=== PATIENT | female | born 1955 | race Caucasian/White ===

== ENCOUNTER 2022-07-28 17:19 | Inpatient (IN) | payer MEDICARE, OTHER ==
[~2022-07-28] VITALS: Ht 167.6 cm; Wt 55.0 kg
[2022-07-28 17:10] VITALS: BP 140/81
[2022-07-28] MEDS ORDERED: ALORA1 EA11 TOP (17:26)
[2022-07-28] MEDS ORDERED: TRAZ50 PO (17:27)
[2022-07-28] MEDS ORDERED: Diazepam10 MG PO (17:32)
[2022-07-28 19:33] VITALS: BP 141/79
--- NOTE | 2022-07-28 19:54 | NUR ---
SHIFT SUMMARY PT A&OX4, VSS/2L/BIOX SATS WNL, NPO/NGT LIS, CONSULT CALLED TO DR CASTELLANOS, VOIDING/BSC, SBA, PAIN TREATED PER EMAR. REPORT TO JUAN CARLOS VANN.
[2022-07-29 05:47] LABS: BASOPHILS ABSOLUTE AUTO 0.04 K/mm3 (0.00-0.23); BASOPHILS PERCENT AUTO 1 % (0-2); EOSINOPHILS ABSOLUTE AUTO 0.05 K/mm3 (0.00-0.68); EOSINOPHILS PERCENT AUTO 1 % (0-6); Hematocrit 31.6 % (33.0-51.0); Hemoglobin 10.5 g/dL (11.5-16.0); IMMATURE GRAN ABSOLUTE AUTO 0.01 K/mm3 (0.00-0.10); IMMATURE GRAN PERCENT AUTO 0 % (0-1); LYMPHOCYTES PERCENT AUTO 17 % (21-46); MONOCYTES ABSOLUTE AUTO 0.28 K/mm3 (0.16-1.47); MONOCYTES PERCENT AUTO 8 % (4-13); Mean Corpuscular HGB 33.1 pg (26.0-34.0); Mean Corpuscular HGB Conc 33.2 g/dL (31.5-36.5); Mean Corpuscular Volume 100 fL (80-100); Mean Platelet Volume 10.3 fL (9.1-12.4); NEUTROPHILS ABSOLUTE AUTO 2.57 K/mm3 (1.96-9.15); NEUTROPHILS PERCENT AUTO 72 % (41-73); Platelet Count 209 K/mm3 (150-400); RDW Coefficient Variation 13.8 % (11.7-14.2); RDW Standard Deviation 50.1 fL (35.1-46.3); Red Blood Cell Count 3.17 M/mm3 (3.80-5.20); White Blood Cell Count 3.55 K/mm3 (4.00-11.30)
[2022-07-29 05:58] LABS: Bun/Creatinine Ratio 24.5 (12.0-20.0); Calcium, Blood 8.1 mg/dL (8.5-10.1); Creatinine, Blood 0.53 mg/dL (0.40-1.00); Potassium, Blood 3.5 mmol/L (3.5-5.5)
--- NOTE | 2022-07-29 06:11 | NUR ---
PATIENT IS ALERT AND ORIENTED X4, COOPERATIVE WITH CARE, STAND BY ASSIST TO HELP MANAGE LINES. PIV INFUSING. PATIENT SLEPT FOR SOME OF THE NIGHT, AND IS NPO WITH NG TUBE TO INT SUCTION WITH 240 GREEN OUTPUT. PAIN TREATED PER MAR. NO OTHER ISSUES TO REPORT.
[2022-07-29 06:27] VITALS: BP 133/77
[2022-07-29 07:41] VITALS: BP 141/86
[2022-07-29 16:20] VITALS: BP 148/75
--- NOTE | 2022-07-29 17:06 | NUR ---
PT REPORTS SOME CRAMPING ABD PAIN WHICH IS WELL CONTROLLED WITH FENTANYL. NG TO LIS WITH DK BROWN OUTPUT. MEDICATED X1 FOR NAUSEA WITH GOOD RELIEF. PT REPORTS ABD FEELS SOFTER AND LESS BLOATED THAN IT DID YESTERDAY. 1 SMALL LIQUID BROWN BM. PT AWARE OF PLAN FOR SBFT IN MORNING
--- NOTE | 2022-07-29 18:45 | NUR ---
1758 IV FENTANYL GIVEN AND PATIENTS IV LEAKING. WILL RESTART IV
[2022-07-29 19:07] VITALS: BP 138/82
[2022-07-30 03:08] VITALS: BP 140/78
[2022-07-30 04:51] LABS: BASOPHILS ABSOLUTE AUTO 0.04 K/mm3 (0.00-0.23); BASOPHILS PERCENT AUTO 1 % (0-2); EOSINOPHILS ABSOLUTE AUTO 0.14 K/mm3 (0.00-0.68); EOSINOPHILS PERCENT AUTO 3 % (0-6); Hematocrit 30.1 % (33.0-51.0); Hemoglobin 10.1 g/dL (11.5-16.0); IMMATURE GRAN ABSOLUTE AUTO 0.02 K/mm3 (0.00-0.10); IMMATURE GRAN PERCENT AUTO 0 % (0-1); LYMPHOCYTES ABSOLUTE AUTO 0.62 K/mm3 (0.84-5.20); LYMPHOCYTES PERCENT AUTO 12 % (21-46); MONOCYTES ABSOLUTE AUTO 0.36 K/mm3 (0.16-1.47); MONOCYTES PERCENT AUTO 7 % (4-13); Mean Corpuscular HGB 33.3 pg (26.0-34.0); Mean Corpuscular HGB Conc 33.6 g/dL (31.5-36.5); Mean Corpuscular Volume 99 fL (80-100); Mean Platelet Volume 10.4 fL (9.1-12.4); NEUTROPHILS ABSOLUTE AUTO 3.86 K/mm3 (1.96-9.15); NEUTROPHILS PERCENT AUTO 77 % (41-73); Platelet Count 221 K/mm3 (150-400); RDW Coefficient Variation 13.2 % (11.7-14.2); RDW Standard Deviation 48.5 fL (35.1-46.3); Red Blood Cell Count 3.03 M/mm3 (3.80-5.20); White Blood Cell Count 5.04 K/mm3 (4.00-11.30)
[2022-07-30 05:04] LABS: Albumin, Blood 2.7 g/dL (3.4-5.0); Anion Gap 6 mmol/L (6-16); Blood Urea Nitrogen 19 mg/dL (8-24); Bun/Creatinine Ratio 32.9 (12.0-20.0); CO2, Blood 28 mmol/L (21-32); Calcium, Blood 7.9 mg/dL (8.5-10.1); Chloride, Blood 107 mmol/L (98-108); Creatinine, Blood 0.58 mg/dL (0.40-1.00); Glomerular Filtration Rate 99 (60-); Glucose, Blood 87 mg/dL (70-99); Phosphorus, Blood 1.5 mg/dL (2.5-4.9); Potassium, Blood 3.3 mmol/L (3.5-5.5); Sodium, Blood 141 mmol/L (136-145)
--- NOTE | 2022-07-30 05:43 | NUR ---
SHIFT SUMMARY PT A&Ox4, CALLS AND COMMUNCIATES NEEDS APPROPRIATELY. PT MODERATELY ANXIOUS THROUGHOUT NIGHT. VITAL SIGNS STABLE. PT REMAINED NPO WITH NG TUBE CONNECTED TO LOW INTERMITTENT SUCTION, 700mLs OF BROWN, LIQUID OUTPUT. PT WITH C/O MODERATE TO SEVERE ABDOMINAL PAIN AND ANXIETY THROUGHOUT NIGHT. PT EXPRESSED CONCERNS OF VALIUM WITHDRAWAL, PROVIDED EDUCATION. DISCUSSED WITH COMPUTER TECHNOLOGY INSTRUCTOR, PT FELT THAT SHE COULD NOT TOLERATE A 30 MINUTE BREAK FROM NG TUBE SUCTION IF SHE WERE TO TAKE THE ORDERED 2.5mg OF VALIUM. NO OTHER EVENTS, WILL REPORT TO ONCOMING RN.
[2022-07-30 07:53] VITALS: BP 125/80
[2022-07-30 12:54] LABS: Percent Saturation 5.8 % (15.0-50.0)
--- NOTE | 2022-07-30 13:48 | NUR ---
NG TUBE REMOVED AT THIS TIME. PT TOLERATED WELL. VERY EXCITED TO HAVE IT REMOVED, CONTINUES TO DENY NAUSEA
[2022-07-30 14:21] VITALS: BP 141/78
--- NOTE | 2022-07-30 16:06 | NUR ---
SHIFT SUMMARY SBO PT HAD SMALL BOWEL FOLLOW THROUGH TODAY, PT HAS NO FURTHER OBSTRUCTION PER IMAGING. MULTIPLE BOWEL MOVEMENTS TODAY. PT REMAINS IND IN ROOM. DENIES PAIN. PT FREQUENTLY REQUESTING ANXIETY MEDICATION, ADMINISTRATION PER EMAR. TOLERATING PO WELL, PLAN IS TO DISCHARGE TOMORROW.
[2022-07-30 19:27] VITALS: BP 148/85
[2022-07-31 02:39] VITALS: BP 132/71
--- NOTE | 2022-07-31 02:40 | NUR ---
SPO2 DROPPED TO 88 ON RA, PATIENT NOW ON 2L NC 02 SATS AT 93%. EDUCATED PATIENT ON USING IS, COUGH AND DEEP BREAHTE. EDUCATED PATIENT ON MEDICATIONS THAT CAUSE RESPIRATORY DEPRESSION. PATIENT APPEARS ANXIOUS AND STATES SHE CANNOT SLEEP AND IS WANTING A HIGHER DOSE OF TRAZADONE. REITIERATED THAT THE MEDICATIONS PATIENT TAKES HAVE A RISK OF RESPIRATORY DEPRESSION AND CAN CAUSE O2 NEED TO INCREASE. PATIENT SEEMS TO ACCEPT THIS EXPLAINATION AND STATES SHE UNDERSTANDS. CALL LIGHT IS IN REACH. CONT. PULSE IN PLACE.
--- NOTE | 2022-07-31 05:58 | NUR ---
SUMMARY NO ACUTE EVENTS THIS SHIFT, PATIENT HAD SMALL BOWEL FOLLOW THROUGH 07/30/22 WITH RESULTING RESOLUTION OF SBO. HAVING MULTIPLE BM T/O SHIFT. TOLERATING CL INTAKE. PATIENT HAS PLANS FOR DISCHARGE HOME WITH DAUGHTER. VITALS HAVE BEEN STABLE, PLACED ON 02 WHILE SLEEPING DUE TO SATS DROPPING TO 88-89. 2 LNC. RA WHILE AWAKE. PATIENT MEDICATED PER EMAR. PATIENT IS ABLE TO AMBULATE IN ROOM INDEP. IV SALINE LOCKED. WILL REPORT TO DAY RN AND CONT TO MONITOR.
[2022-07-31 07:02] VITALS: BP 139/84
[2022-07-31 07:07] LABS: BASOPHILS ABSOLUTE AUTO 0.03 K/mm3 (0.00-0.23); BASOPHILS PERCENT AUTO 1 % (0-2); EOSINOPHILS ABSOLUTE AUTO 0.16 K/mm3 (0.00-0.68); EOSINOPHILS PERCENT AUTO 3 % (0-6); Hematocrit 28.9 % (33.0-51.0); Hemoglobin 10.1 g/dL (11.5-16.0); IMMATURE GRAN ABSOLUTE AUTO 0.03 K/mm3 (0.00-0.10); IMMATURE GRAN PERCENT AUTO 1 % (0-1); LYMPHOCYTES ABSOLUTE AUTO 0.41 K/mm3 (0.84-5.20); LYMPHOCYTES PERCENT AUTO 7 % (21-46); MONOCYTES ABSOLUTE AUTO 0.25 K/mm3 (0.16-1.47); MONOCYTES PERCENT AUTO 4 % (4-13); Mean Corpuscular HGB 33.7 pg (26.0-34.0); Mean Corpuscular HGB Conc 34.9 g/dL (31.5-36.5); Mean Corpuscular Volume 96 fL (80-100); Mean Platelet Volume 9.8 fL (9.1-12.4); NEUTROPHILS ABSOLUTE AUTO 5.07 K/mm3 (1.96-9.15); NEUTROPHILS PERCENT AUTO 85 % (41-73); Platelet Count 216 K/mm3 (150-400); RDW Coefficient Variation 13.2 % (11.7-14.2); RDW Standard Deviation 46.8 fL (35.1-46.3); White Blood Cell Count 5.95 K/mm3 (4.00-11.30)
[2022-07-31 07:25] LABS: Albumin, Blood 2.7 g/dL (3.4-5.0); Anion Gap 7 mmol/L (6-16); Blood Urea Nitrogen 15 mg/dL (8-24); Bun/Creatinine Ratio 27.5 (12.0-20.0); CO2, Blood 27 mmol/L (21-32); Calcium, Blood 7.8 mg/dL (8.5-10.1); Chloride, Blood 108 mmol/L (98-108); Creatinine, Blood 0.55 mg/dL (0.40-1.00); Glomerular Filtration Rate 100 (60-); Glucose, Blood 131 mg/dL (70-99); Phosphorus, Blood 1.7 mg/dL (2.5-4.9); Potassium, Blood 2.8 mmol/L (3.5-5.5); Sodium, Blood 142 mmol/L (136-145)
--- NOTE | 2022-07-31 11:18 | NUR ---
1110 ORDERS RECEIVED FOR K PHOS INFUSION. DISCUSSED INFUSION WITH PATIENT WHO TELLS ME SHE DOES NOT WANT TO STAY HERE TO RECEIVE 5 HOUR INFUSION. PT TELLS ME SHE IS CALLING HER PCP. PHONE CALL PLACED AND DISCUSSED WITH DR RAVI
--- NOTE | 2022-07-31 11:30 | NUR ---
PT TELLS ME SHE SPOKE WITH HER PCP AND SHE IS NOW IN AGREEMENT WITH IV INFUSION. DR RAVI SPOKE WITH PATIENT AND ORDERS RECEIVED
[2022-07-31 13:55] VITALS: BP 132/78
[2022-07-31] MEDS ORDERED: DIAZ5 PO (15:23)
[2022-07-31] MEDS ORDERED: TRAZ50 (15:24)
[2022-07-31] MEDS ORDERED: TRAZ50 PO (15:25)
--- NOTE | 2022-07-31 18:13 | NUR ---
1804 DISCHARGED TO HOME WITH DAUGHTER. PT RACHELE FULL LIQUID DIET WITHOUT NAUSEA. VOIDING CLEAR YELLOW URINE, BROWN LIQUID BM. PT DENIES ABD PAIN, REPORTS SOME ABD "SORENESS". PT IN AGREEMETN WITH DISCHARGE PLAN. PRESCRIPTION GIVEN TO PATIENTS DAUGHTER
== END 2022-07-31 18:05 | disposition home or self-care (01) | DRG 389 ==
LOC: SURS 17:19
PROVIDERS: ADMIT Internal Medicine
DX: K56.609 Unspecified intestinal obstruction, unspecified as to partial versus complete obstruction (principal); E87.1 Hypo-osmolality and hyponatremia; J98.11 Atelectasis; G89.29 Other chronic pain; F51.04 Psychophysiologic insomnia; R06.81 Apnea, not elsewhere classified; R73.9 Hyperglycemia, unspecified; D70.9 Neutropenia, unspecified; E87.6 Hypokalemia; E83.39 Other disorders of phosphorus metabolism; D64.9 Anemia, unspecified; F41.9 Anxiety disorder, unspecified; Z90.710 Acquired absence of both cervix and uterus; Z98.1 Arthrodesis status; Z79.899 Other long term (current) drug therapy
CPT/HCPCS: 36415; 74250; 80048; 80069; 82607; 82728; 82746; 83540; 83550; 84132; 85025; 94761; 94762; A9270; J1650; J1885; J2060; J2270; J2405; J2765; J3010; J7030; J7060